=== PATIENT | male | born 1975 | race American Indian/Alaskan Native ===

== ENCOUNTER 2017-09-09 11:02 | Day surgery (SDC) | payer OTHER ==
[~2017-09-09 11:02] MED LIST: TETRACAINE 0.5% OD PRN
[2017-09-09] MEDS: MYDRIACYL OD SCH ×4 (11:50→12:45)
[2017-09-09] MEDS: VIGAMOX OD SCH ×3 (11:50→12:00)
[2017-09-09] MEDS: AK-Dilate OD SCH ×4 (11:50→12:45)
[2017-09-09] MEDS ORDERED: HumuLIN R IV ONE (12:29)
[2017-09-09] MEDS ORDERED: VERSED ONE (13:53)
[2017-09-09] MEDS ORDERED: SUBLIMAZE ONE (13:55)
[2017-09-09] MEDS ORDERED: MIOSTAT OD ONE (14:17)
--- NOTE | 2017-09-09 14:24 | Operative Report ---
Operative Report Operative Report: PATIENT'S NAME: DATE OF : DATE OF SURGERY: 09/09/2017 PREOPERATIVE DIAGNOSIS: Cataract right eye POSTOPERATIVE DIAGNOSIS: Same OPERATIVE PROCEDURE: Phacoemulsification with intraocular lens implantation, right eye SURGEON: Ale Quinn M.D. ECHOCARDIOGRAPH TECHNICIAN SURGEON: Rock Lens: [id number] 20.5 D ANESTHESIA: Monitored anesthesia care in combination with topical and intracameral anesthesia because of the established specific risk of reflux, arrhythmias, or anxiety attacks associated with ocular manipulation, as well as the difficulty of the spread cutter to manage such potentially catastrophic events while simultaneously attempting to complete the surgical procedure and was deemed necessary for the patient's safety to have an Soccer Ball Assembler present during the procedure whenever possible. An Soccer Ball Assembler was utilized to regulate the intravenous sedation of the patient so the patient was cooperative yet not asleep in order for the patient to successfully maintain fixation of the eye on the operating light of the microscope. COMPLICATIONS: No surgical complications No blood loss. ALLERGIES: N known drug allergies PROGNOSIS: Excellent INDICATIONS FOR SURGERY: The patient is undergoing surgery in the hopes of eliminating or improving these visual difficulties. PROCEDURE: After arriving at the surgery center, the patient was given topical anesthetic and dilating drops, as noted in the record. The patient was then taken into the operating room and given more anesthetic drops. The eyelids , lashes, and lid margins were scrubbed with Betadine solution, and the patient was draped. The Nurse Soccer Ball Assembler administered IV sedation and monitored the patient during the procedure. The eye was then fixated with a 0.12, and a stab incision was made in the peripheral clear cornea into the anterior chamber. This was made on my left side. Viscoelastic was next used to fill the anterior chamber. The eye was once again fixated with the 0.12 forceps and a keratome was used make an incision in clear cornea peripherally on my right hand side temporally. The capsule forceps were used to open the central anterior capsule and then make a continuous round capsulotomy. Hydrodissection was carried out utilizing a cannula and balanced salt solution to delineate the cortical material from the capsule and the nucleus from the cortical material. The phaco tip was introduced into the eye and used to remove the anterior cortical material in the area of the capsulotomy. Then the phaco tip was buried into the nucleus, and a chopping instrument was introduced into the eye and used to provide countertraction in the nucleus between this instrument and the phaco tip fracturing the nucleus. This procedure was repeated multiple times, providing multiple small segments of the lens, and then the phaco tip was used to remove each of these segments. An I/A tip was then used to remove the remaining cortex. The anterior chamber was refilled with viscoelastic. An one-piece, acrylic intraocular lens was then placed into an inserting cartridge. The tip of the inserting cartridge was introduced into the keratome incision and into the anterior chamber. The implant was gently advanced through the cartridge and into the eye, where it unfolded, and both haptics were placed in the capsular bag, where it centered nicely and appeared to be well fixated. After placement of the intraocular lens, the I~and~A handpiece was placed back into the eye and used to remove the viscoelastic, including viscoelastic that was behind the optic of the intraocular lens. The anterior chamber was then filled with balanced salt solution, and hydration of the wound was used to cause swelling of the wound and more appropriate watertight closure. When the wound was found to be firm, the patient was asked to comment on how bright the light was. If there was no light perception at all or if the light was substantially dimmer than during the rest of the surgery, the amount of fluid in the eye was decompressed to lower the intraocular pressure until the patient could see the bright light again. This was done to avoid any damage or decreased blood flow to the optic nerve. MEDICATIONS APPLIED AT END OF SURGERY: One drop of Pred Forte and Vigamox The patient was given a shield to wear at night and was instructed not to rub or push on the eye. DISCHARGE SUMMARY: The patient was released in stable condition. The patient and those with the patient were given a written sheet of postoperative instructions and counseling on any abnormal laboratory studies. The patient is to see us tomorrow for follow-up in the office and is to call immediately for any difficulties. Ale Quinn M.D. Date
--- NOTE | 2017-09-09 14:25 | Short Stay Summary ---
Short Stay Documentation Date of service: 09/09/17 - History H&P: obtained from office - Allergies and Medications Current Medications: Allergies No Known Allergies Allergy (Verified 09/08/17 13:04) Home Medications Medication Instructions Recorded Confirmed Last Taken Type Insulin Glargine,Hum.rec.anlog 25 units SQ TID 09/08/17 09/09/17 09/08/17 History [Lantus] Active Medications Acetazolamide (Diamox) 500 mg PO ONCE ONE Stop: 09/09/17 14:24 Moxifloxacin HCl (Vigamox) 1 drops OD Q5MIN [facility] Stop: 09/09/17 18:00 Last Admin: 09/09/17 12:00 Dose: 1 drops Phenylephrine HCl (Ak-Dilate) 1 drops OD Q5MIN [facility] Stop: 09/09/17 18:00 Last Admin: 09/09/17 12:45 Dose: 1 drops Prednisolone Acetate (Pred Forte 1%) 1 drops OD QID [place] Tetracaine HCl (Tetracaine 0.5%) 1 drops OD Q5M PRN PRN Reason: Analgesia Stop: 09/09/17 18:00 Last Admin: 09/09/17 11:50 Dose: 1 drops Tropicamide (Mydriacyl) 1 drops OD Q5MIN [place] Stop: 09/09/17 18:00 Last Admin: 09/09/17 12:45 Dose: 1 drops - Brief post op/procedure progress note Date of procedure: 09/09/17 Pre-op diagnosis: traumatic cataract right eye Post-op diagnosis: same Procedure: Phacoemulsification with intraocular lens insertion right eye Anesthesia: MAC, local Surgeon: GENE OSWALD Estimated blood loss: none Pathology: none Condition: stable - Disposition Condition at discharge: Good Disposition: DC-01 TO HOME OR SELFCARE - Discharge Diagnoses (1) Traumatic cataract of right eye Status: Resolved Qualifiers: Traumatic cataract type: localized Qualified Code(s): H26.111 - Localized traumatic opacities, right eye Short Stay Discharge Plan Follow up with: LISA GRIFFIN MD [Primary Care Provider] - 7 Days
--- NOTE | 2017-09-09 14:32 | Anesthesia Consultation ---
Anesthesia Consult and Med Hx Date of service: 09/09/17 - Airway Anesthetic Teeth Evaluation: Good ROM Head & Neck: Adequate Mental/Hyoid Distance: Adequate Mallampati Class: Class I Intubation Access Assessment: Good - Pulmonary Exam CTA: Yes - Cardiac Exam Cardiac Exam: RRR - Pre-Operative Health Status ASA Pre-Surgery Classification: ASA3 - Pulmonary Hx Smoking: Yes (3 CIG/DAY FOR 10 YEARS) Hx Sleep Apnea: Yes (NO MACHINE) - Central Nervous System Hx Psychiatric Problems: No - Other Systems Hx Alcohol Use: Yes (WEEKENDS) Hx Substance Use: No Hx Cancer: No
--- NOTE | 2017-09-09 14:32 | Anesthesia Day of Surgery ---
Anesthesia Day of Surgery - Day of Surgery Patient Examined: Yes Patient H&P Reviewed: Yes Patient is NPO: Yes
[2017-09-09 14:50] VITALS: BP 130/83
[2017-09-09] MEDS ORDERED: DIAMOX PO ONE (15:23)
[2017-09-09] MEDS ORDERED: PRED FORTE 1% ONE (16:13)
--- NOTE | 2017-09-09 17:26 | Post Anesthesia Evaluation ---
- Post Anesthesia Evaluation Patient Participated: Yes Airway Patent: Yes Stable Respiratory Function: Yes Nausea/Vomiting: No Temp > 96.8F: Yes Pain Manageable: Yes Adequeate Hydration: Yes Anesthesia Complications: No Block Receding Appropriately: Not Applicable Patient on Ventilator: No
[2017-09-09] MEDS ORDERED: PRED FORTE 1% OD SCH (18:00)
== END 2017-09-09 15:18 | disposition home or self-care (01) ==
LOC: OR 11:02
DX: E11.36 Type 2 diabetes mellitus with diabetic cataract (principal); G47.33 Obstructive sleep apnea (adult) (pediatric); E66.9 Obesity, unspecified; F17.210 Nicotine dependence, cigarettes, uncomplicated; Z68.32 Body mass index [BMI] 32.0-32.9, adult
CPT/HCPCS: 66984; 82962; J2250; J3010; J1815; V2632

== ENCOUNTER 2018-09-18 12:46 | Inpatient (IN) | payer OTHER ==
[2018-09-18] MEDS ORDERED: NACL 0.9% 1000 ML 2,000 ML IV ONE (12:56)
[2018-09-18] MEDS ORDERED: ROCEPHIN/NS 1 GM/50 ML 1 GM/50 ML BAG IV ONE (13:06)
--- NOTE | 2018-09-18 13:15 | Emergency Department Report ---
HPI - General Chief Complaint: Fever Time Seen by Provider: 09/18/18 12:53 - HPI HPI: 42-year-old -[place] male presents to the emergency department with complaint of generalized weakness and general illness for the past 1-2 days. He presents with a fever and the patient admits to having some chills and sweats but never checked his temperature. The patient is insulin-dependent diabetic on Novolin R and Novolin and that he has been out of his insulin for the past week or so. No recent travel or sick contacts at home. He does have some consistent diarrhea but he denies any chest pain, shortness of breath, fever, nausea, vomiting, rash. His primary care physician is Dr. Taty Chavis. He did not take anything for his symptoms prior to arrival today. ED Past Medical Hx - Past Medical History Previous Medical History?: Yes Hx Diabetes: Yes (4 YEARS) Hx HIV: No - Surgical History Past Surgical History?: No - Social History Smoking Status: Current Every Day Smoker - Medications Home Medications: Home Medications Medication Instructions Recorded Confirmed Last Taken Type Insulin NPH, Human [NovoLIN N] 20 units SQ HS 09/18/18 09/18/18 Unknown History Insulin Regular, Human [HumuLIN R] 20 unit SQ AC 09/18/18 09/18/18 Unknown History ED Review of Systems ROS: Stated complaint: WEAK/DIABETIC Other details as noted in HPI Constitutional: chills, diaphoresis, weakness Eyes: denies: eye pain, vision change ENT: denies: ear pain, throat pain Respiratory: denies: cough, shortness of breath Cardiovascular: denies: chest pain, palpitations Gastrointestinal: denies: abdominal pain, vomiting Genitourinary: denies: dysuria, discharge Musculoskeletal: denies: back pain, arthralgia Skin: denies: rash, lesions Neurological: denies: headache, weakness Physical Exam - Physical Exam Physical Exam: GENERAL: The patient is well-developed well-nourished. HENT: Normocephalic. Atraumatic. Patient has moist mucous membranes. EYES: Extraocular motions are intact. Pupils equal reactive to light bilaterally. NECK: Supple. Trachea is midline. CHEST/LUNGS: Clear to auscultation. There is no respiratory distress noted. HEART/CARDIOVASCULAR: Regular. There is moderate tachycardia. There is no murmur. ABDOMEN: Abdomen is soft, nontender. Patient has normal bowel sounds. There is no abdominal distention. SKIN: Skin is warm and dry. NEURO: The patient is awake, alert, and oriented. The patient is cooperative. The patient has no focal neurologic deficits. The patient has normal speech. CN II - XII grossly intact. MUSCULOSKELETAL: There is no tenderness or deformity. There is no limitation range of motion. There is no evidence of acute injury. ED Medical Decision Making - Lab Data Result diagrams: 09/18/18 13:04 09/18/18 13:04 - EKG Data -: EKG Interpreted by Me EKG shows normal: sinus rhythm, axis, intervals, QRS complexes, ST-T waves Rate: tachycardia (125 bpm) - EKG Data When compared to previous EKG there are: previous EKG unavailable Interpretation: other (Sinus Tachycardia) - Radiology Data Radiology results: image reviewed interpreted by me: Chest x-ray does not show any acute process. There are no pleural effusions, obvious pneumonia and there is no pneumothorax. - Medical Decision Making Patient presents to the emergency department with some generalized weakness, hyperglycemia, and fever. Sepsis protocol was initiated and the patient was treated empirically with some Rocephin. He had a blood sugar of about 450 but does not appear in diabetic ketoacidosis as there is no significant anion gap elevation and no venous acidosis. He was given IV fluid resuscitation and IV insulin and his blood sugars come down to about 250. Chest x-ray did not show any pneumonia, pleural effusions, pneumothorax, focal consolidation, or any other acute process. Patient was given Tylenol and Toradol and his fever came down slightly but the patient still remains febrile, diaphoretic and tachycardic. For these reasons, the patient will be admitted to the hospital for further evaluation and treatment and was acceptable for admission by the hospitalist, Dr. Steele. - Differential Diagnosis sepsis, SIRS, DKA, viral syndrome Critical Care Time: No Critical care attestation.: If time is entered above; I have spent that time in minutes in the direct care of this critically ill patient, excluding procedure time. ED Disposition Clinical Impression: SIRS (systemic inflammatory response syndrome), Hyperglycemia due to type 1 diabetes mellitus, Fever Disposition: OP ADMIT IP TO THIS HOSP Is pt being admited?: Yes Condition: Serious Time of Disposition: 18:09
[2018-09-18] MEDS ORDERED: TYLENOL ONE (13:18)
[2018-09-18 13:29] LABS: Basophils # (Auto) 0.1 K/mm3 (0.0-0.1); Basophils % (Auto) 0.5 % (0.0-1.8); Eosinophils % (Auto) 0.1 % (0.0-4.3); Hematocrit 41.7 % (35.5-45.6); Hemoglobin 13.9 gm/dl (11.8-15.2); Lymphocytes # (Auto) 1.1 K/mm3 (1.2-5.4); Lymphocytes % (Auto) 7.3 % (13.4-35.0); Mean Corpuscular HGB Conc 33 % (32-34); Mean Corpuscular Volume 86 fl (84-94); Monocytes % (Auto) 12.5 % (0.0-7.3); Platelet Count 172 K/mm3 (140-440); Red Blood Count 4.84 M/mm3 (3.65-5.03); Red Cell Distribution Width 14.3 % (13.2-15.2)
[2018-09-18 13:31] LABS: Bilirubin,Urine NEG (Negative); Blood,Urine SM (Negative); Color,Urine Yellow (Yellow); Urobilinogen,Urine < 2.0 mg/dL (<2.0)
[2018-09-18] MEDS ORDERED: TYLENOL PO ONE (13:40)
[2018-09-18 13:49] LABS: Alanine Aminotransferase 14 units/L (7-56); Albumin 3.3 g/dL (3.9-5); BUN/Creatinine Ratio 12; Blood Urea Nitrogen 18 mg/dL (9-20); Calcium 9.3 mg/dL (8.4-10.2); Hemolysis Index 3
[2018-09-18] MEDS ORDERED: TORADOL IV ONE (13:51)
[2018-09-18] MEDS ORDERED: HumuLIN R IV ONE (13:51)
--- NOTE | 2018-09-18 14:00 | XRay Report ---
PROCEDURE: XR CHEST 1V AP TECHNIQUE: AP chest HISTORY: fever, sepsis COMPARISONS: None FINDINGS: Trachea midline. Heart size normal. Mediastinal contour unremarkable. No pneumothorax. No effusion. No acute airspace disease. No acute bony abnormality IMPRESSION: No acute pulmonary disease.. This document is electronically signed by Sourav Quintero MD., Sep 18 2018 01:58:08 PM ET
--- NOTE | 2018-09-18 15:37 | History and Physical Report ---
History of Present Illness Chief complaint: I just feel sick History of present illness: 42 YO Male with DM, Nicotine Dependence, Obesity presents to ED for evaluation. Pt states that he has experienced fever, night sweats, generalized weakness and fatigue over the past 1 week, with worsening symptoms over the past 1-2 days. Pt acknowledges 15lbs unintentional weight loss over the past 1 month, as well as night sweats. Pt transported to [facility] via private vehicle. Pt seen and evaluated in ED and found to have temperature to 103.1, Acidosis, SIRS, Hyponatremia. QSofa Score:0 at time of admission. Pt denies CP, Palpitations, NVD, Trauma, back Pain, Headache, skin rash, unilateral leg swelling, calf pain, prolonged travel/immobility, known ill contacts, contacts with similar symptoms, recent foreign travel, Known exposure to Tuberculosis. Pt admitted to Medical floor, and initiated on IV antibiotic therapy. CTA chest, as well as CT Abdomen/Pelvis are pending at time of admission. No prior admission for review. All listed medication reconciled at time of admission. PCP: Dr. Taty Chavis. Past History Past Medical History: diabetes, other (Obesity) Past Surgical History: No surgical history Social history: smoking Family history: hypertension Medications and Allergies Allergies Allergy/AdvReac Type Severity Reaction Status Date / Time No Known Allergies Allergy Verified 09/08/17 13:04 Home Medications Medication Instructions Recorded Confirmed Last Taken Type Insulin NPH, Human [NovoLIN N] 20 units SQ HS 09/18/18 09/18/18 Unknown History Insulin Regular, Human [HumuLIN R] 20 unit SQ AC 09/18/18 09/18/18 Unknown History Review of Systems Constitutional: fever, night sweats, weakness Ears, nose, mouth and throat: no ear pain, no ear discharge, no tinnitis, no decreased hearing, no nose pain Cardiovascular: no chest pain, no orthopnea, no palpitations, no rapid/irregular heart beat, no edema, no syncope Respiratory: no cough, no cough with sputum, no excessive sputum, no hemoptysis, no shortness of breath Gastrointestinal: no abdominal pain, no nausea, no vomiting, no diarrhea, no constipation Genitourinary Male: no hematuria, no flank pain, no discharge, no urinary frequency, no urinary hesitancy Rectal: no pain, no incontinence, no bleeding Musculoskeletal: no neck stiffness, no neck pain, no shooting arm pain, no leg numbness/tingling Integumentary: no rash, no pruritis, no redness, no sores, no wounds, no jaundice Neurological: no transient paralysis, no paralysis, no weakness, no parathesias, no numbness, no tingling, no seizures, no syncope Psychiatric: no anxiety, no memory loss, no change in sleep habits, no sleep disturbances, no insomnia, no hypersomnia, no change in appetite, no change in libido Endocrine: no cold intolerance, no heat intolerance, no polyphagia, no excessive thirst, no polydipsia, no polyuria, no nocturia Hematologic/Lymphatic: no easy bruising, no easy bleeding, no lymphadenopathy Allergic/Immunologic: no urticaria, no allergic rhinitis, no wheezing, no persistent infections Exam - Constitutional Vitals: Temp Pulse Resp BP Pulse Ox 102.5 F H 120 H 20 101/49 97 09/18/18 14:42 09/18/18 14:42 09/18/18 14:42 09/18/18 14:42 09/18/18 14:42 General appearance: Present: mild distress, obese - EENT Eyes: Present: PERRL ENT: hearing intact, clear oral mucosa - Neck Neck: Present: supple, normal ROM - Respiratory Respiratory effort: normal Respiratory: bilateral: CTA - Cardiovascular Heart Sounds: Present: S1 & S2. Absent: rub, click - Extremities Extremities: pulses symmetrical, No edema Peripheral Pulses: within normal limits - Abdominal General gastrointestinal: Present: soft, non-tender, non-distended, normal bowel sounds Male genitourinary: Present: normal - Integumentary Integumentary: Present: clear, warm, dry - Musculoskeletal Musculoskeletal: gait normal, strength equal bilaterally - Psychiatric Psychiatric: appropriate mood/affect, intact judgment & insight - Neurologic Neurologic: CNII-XII intact, moves all extremities Results - Labs CBC & Chem 7: 09/18/18 13:04 09/18/18 13:04 Labs: Abnormal lab results 09/18/18 09/18/18 09/18/18 Range/Units 12:57 13:04 13:04 WBC 15.8 H (4.5-11.0) K/mm3 Lymph % (Auto) 7.3 L (13.4-35.0) % [place] % (Auto) 12.5 H (0.0-7.3) % Lymph # 1.1 L (1.2-5.4) K/mm3 [place] # 2.0 H (0.0-0.8) K/mm3 Seg Neutrophils % 79.6 H (40.0-70.0) % Seg Neutrophils # 12.5 H (1.8-7.7) K/mm3 Sodium 128 L (137-145) mmol/L Chloride 89.0 L (98-107) mmol/L Glucose 461 H (75-100) mg/dL POC Glucose 418 H (70-105) Lactic Acid (0.7-2.0) mmol/L Albumin 3.3 L (3.9-5) g/dL Ur Specific [place] (1.003-1.030) 09/18/18 09/18/18 09/18/18 Range/Units 13:04 13:08 14:43 WBC (4.5-11.0) K/mm3 Lymph % (Auto) (13.4-35.0) % [place] % (Auto) (0.0-7.3) % Lymph # (1.2-5.4) K/mm3 [place] # (0.0-0.8) K/mm3 Seg Neutrophils % (40.0-70.0) % Seg Neutrophils # (1.8-7.7) K/mm3 Sodium (137-145) mmol/L Chloride (98-107) mmol/L Glucose (75-100) mg/dL POC Glucose (70-105) Lactic Acid 2.80 H* 2.20 H* (0.7-2.0) mmol/L Albumin (3.9-5) g/dL Ur Specific [place] 1.031 H (1.003-1.030) 09/18/18 Range/Units 15:18 WBC (4.5-11.0) K/mm3 Lymph % (Auto) (13.4-35.0) % [place] % (Auto) (0.0-7.3) % Lymph # (1.2-5.4) K/mm3 [place] # (0.0-0.8) K/mm3 Seg Neutrophils % (40.0-70.0) % Seg Neutrophils # (1.8-7.7) K/mm3 Sodium (137-145) mmol/L Chloride (98-107) mmol/L Glucose (75-100) mg/dL POC Glucose 255 H (70-105) Lactic Acid (0.7-2.0) mmol/L Albumin (3.9-5) g/dL Ur Specific [place] (1.003-1.030) Assessment and Plan - Patient Problems (1) SIRS (systemic inflammatory response syndrome) Current Visit: Yes Status: Acute Plan to address problem: IV antibiotic therapy, CBC, CMP, Urinalysis, Chest x ray, blood cultures, stool studies, CTA chest, CT Abdomen pelvis to evaluate for intrathoracic and intraabdominal pathology, Influenza A&B, Rapid HIV (2) Hyperglycemia due to type 1 diabetes mellitus Current Visit: Yes Status: Acute Plan to address problem: ADA diet,sliding scale insulin, accu check, lantus QHS. (3) Acidosis Current Visit: Yes Status: Acute Plan to address problem: IVF resuscitation therapy, repeat bmp, (4) Hyponatremia syndrome Current Visit: Yes Status: Acute Plan to address problem: IVF resuscitation therapy, repeat bmp in am. (5) Nicotine dependence with withdrawal Current Visit: Yes Status: Acute Qualifiers: Nicotine product type: cigarettes Qualified Code(s): F17.213 - Nicotine dependence, cigarettes, with withdrawal Plan to address problem: Smoking cessation counseling, supportive care. (6) DVT prophylaxis Current Visit: Yes Status: Acute Plan to address problem: SCD to BLE while in bed, Prophylactic lovenox
[2018-09-18] MEDS ORDERED: NACL 0.9% 1000 ML IV ONE (16:19)
[2018-09-18] MEDS ORDERED: SODIUM CHLORIDE FLUSH SYRINGE 10 ML IV PRN (16:19)
[2018-09-18] MEDS ORDERED: ZOFRAN IV PRN (16:19)
[2018-09-18] MEDS ORDERED: NACL 0.9% 500 ML 500 ML ONE ×2 (17:10→20:59)
[2018-09-18] MEDS ORDERED: D50W (25GM) Syringe IV PRN (19:01)
--- NOTE | 2018-09-18 22:09 | Cat Scan Report ---
PROCEDURE: CT ANGIO CHEST TECHNIQUE: Computerized tomographic angiography of the chest was performed during the IV injection o f iodinated nonionic contrast including image processing. The image data was postprocessed using 2-d imensional multiplanar reformatted (MPR) and 3-dimensional (MIP and/or volume rendered) techniques. A utomated exposure control, adjustment of mA and/or kV according to patient size, or iterative reconst ruction dose optimization techniques were utilized. HISTORY: dypsnea COMPARISONS: None . FINDINGS: Pulmonary out flow tract, right and left main pulmonary arteries and the approximal branches: Clear, no filling defects seen to suggest pulmonary embolus. Pericardium: No evidence of pericardial effusion. Thoracic aorta: No evidence of aneurysmal dilatation or dissection. Coronary arteries: Unremarkable. Mediastinum and hilar regions: Non specific subcentimeter lymph nodes are visualized. No pathologica lly enlarged lymph nodes or masses are identified. Lung Amos: Clear. Upper abdomen: No acute or focal abnormality is seen. Other: There is deformity of the midportion of the sternum. There appears to be an old fracture with nonunion versus congenital anomaly with nonfusion of the previous growth plate. This is best visualiz ed on sagittal images. No acute bone abnormalities are identified. IMPRESSION: No acute abnormalities are identified. No evidence of pulmonary embolus. Mild deformity junction of the proximal third of the sternum as described above. This could be relate d to previous fracture with nonunion or congenital anomaly with nonfusion of previous growth plate in this location. This is best visualized on sagittal images. Correlation with physical exam recommende d.. This document is electronically signed by James Bryant MD., Sep 18 2018 10:07:06 PM ET
[2018-09-18] MEDS: HumaLOG SUB-Q SCH (22:17)
[2018-09-18] MEDS: LOVENOX SUB-Q SCH (22:18)
[2018-09-18] MEDS: ROCEPHIN/NS 2 GM/100 ML 2 GM/100 ML BAG IV SCH (22:19)
[2018-09-18] MEDS: SODIUM CHLORIDE FLUSH SYRINGE 10 ML IV SCH (22:19)
--- NOTE | 2018-09-18 23:17 | Cat Scan Report ---
PROCEDURE: CT ABDOMEN PELVIS W CON TECHNIQUE: Computerized axial tomography of the abdomen and pelvis was performed after the IV inject ion of iodinated nonionic contrast. HISTORY: fever, pain COMPARISONS: None . FINDINGS: Lower Lung vazquez: No focal abnormalities seen. Upper Abdomen: The gallbladder is contracted otherwise unremarkable. The liver, the adrenal glands, pancreas and the spleen show no abnormalities. Kidneys, Ureters and Urinary bladder: No abnormalities are seen. No renal masses, or hydronephrosis visualized. Retroperitoneum: Minimal atherosclerotic changes are seen in the abdominal aorta. No aneurysm is vis ualized. Nonspecific subcentimeter lymph nodes are seen in the retroperitoneum. No pathologically enlarged ly mph nodes are identified. Bowel: No focal or acute abnormalities are identified. No evidence of bowel obstruction ascites or f ree intraperitoneal gas. Normal-appearing appendix is seen in the right lower quadrant. Reproductive organs: Prostate gland does not appear to be enlarged. Other: No acute bone abnormalities are identified. IMPRESSION: No acute or focal abnormalities are identified. This document is electronically signed by James Bryant MD., Sep 18 2018 11:15:10 PM ET
[2018-09-19 05:44] LABS: Amphetamine Screen,Urine PRESUMPTIVE NEGATIVE; Benzodiazepines Screen,Urine PRESUMPTIVE NEGATIVE; Cannabinoid Screen,Urine PRESUMPTIVE NEGATIVE; Cocaine Screen,Urine PRESUMPTIVE NEGATIVE; Methadone Screen,Urine PRESUMPTIVE NEGATIVE; Opiate Screen,Urine PRESUMPTIVE NEGATIVE
[2018-09-19] MEDS: HumaLOG SUB-Q SCH ×4 (09:35→22:04)
[2018-09-19] MEDS: ROCEPHIN/NS 2 GM/100 ML 2 GM/100 ML BAG IV SCH (10:31)
[2018-09-19] MEDS: SODIUM CHLORIDE FLUSH SYRINGE 10 ML IV SCH ×2 (10:31→22:03)
[2018-09-19] MEDS: TYLENOL PO PRN ×2 (12:28→17:10)
[2018-09-19 12:33] LABS: Hematocrit 38.1 % (35.5-45.6); Hemoglobin 12.7 gm/dl (11.8-15.2); Mean Corpuscular HGB Conc 33 % (32-34); Mean Corpuscular Volume 85 fl (84-94); Platelet Count 163 K/mm3 (140-440); Red Blood Count 4.48 M/mm3 (3.65-5.03); Red Cell Distribution Width 14.2 % (13.2-15.2)
--- NOTE | 2018-09-19 12:47 | Progress Note ---
Assessment and Plan / Sepsis, POA due to right diabetic foot infection patient presented with fever, lactic acidosis, leukocytosis, tachycardia and tachypnea cont IV antibiotic therapy, follow blood cultures, wound cx, ID consult, CT Right LE /Right diabetic foot infection cont IV antibiotic therapy, follow blood cultures, wound cx, ID consult, CT Right LE / Hyperglycemia due to uncontrolled type 2 diabetes mellitus ADA diet, sliding scale insulin, accu check, lantus QHS. adjust insulin dose as needed /Metabolic Acidosis due to sepsis and hyperglycemia IVF resuscitation therapy, repeat bmp, / Hyponatremia due to hyperglycemia IVF resuscitation therapy, repeat bmp in am. / Tobacco abuse Smoking cessation counseling done on admission, nicotine patch if needed / DVT prophylaxis Prophylactic lovenox Brief History: 42 y/o male with history of uncontrolled diabetes, HTN admitted on 09/18/2018 due to 2-day history of subjective fever, malaise and right foot pain and noted some tenderness and swelling of the right plantal 1st mt head area with some purulence drainage. In the ED, temp 103, HR 132, BP 139/85, R 21, O2 sat 95%. WBC 15. Creat 1.5. Lactate 2.8. Glucose 418. UA neg. HIV neg. Blood culture 09/18/2018 no growth. CXR negative. CTA chest negative. CT abdomen negative. ID consulted for further Mx of the infected diabetic foot. Physical Examination General appearance: Alert in NAD, HEENT: Atraumatic; oropharynx clear with moist mucous membranes and no mucosal ulcerations/no oral thrush; normal hard and soft palate. Normal external ears. PERRLA Neck: Trachea midline; supple, no thyromegaly or lymphadenopathy Lungs: CTA, with normal respiratory effort and no intercostal retractions CV: S1 and s2 positive, no murmurs Abdomen: Soft, non-tender; no masses or hepatosplenomegaly Extremities: +right foot 1st mt head plantar wound with edema, tenderness draining bloody purulence Skin: Normal temperature, turgor and texture; no rash, ulcers or subcutaneous nodules Psych: Appropriate affect, alert and oriented to person, place and time. Neuro: alert and oriented x 3. Moving all extremities Subjective Date of service: 09/19/18 Interval history: patient seen and examined c/o right foot pain and discharge from the planter surface spiking temp Objective - Constitutional Vitals: Vital Signs - 12hr 09/19/18 09/19/18 04:54 12:04 Temperature 100.9 F H 102.4 F H Pulse Rate 111 H 103 H Respiratory 20 20 Rate Blood Pressure 127/79 O2 Sat by Pulse 95 96 Oximetry - Labs CBC & Chem 7: 09/19/18 12:06 09/19/18 12:06 Labs: Abnormal lab results 09/18/18 09/18/18 09/18/18 Range/Units 12:57 13:04 13:04 WBC 15.8 H (4.5-11.0) K/mm3 Lymph % (Auto) 7.3 L (13.4-35.0) % [place] % (Auto) 12.5 H (0.0-7.3) % Lymph # 1.1 L (1.2-5.4) K/mm3 [place] # 2.0 H (0.0-0.8) K/mm3 Seg Neutrophils % 79.6 H (40.0-70.0) % Seg Neutrophils # 12.5 H (1.8-7.7) K/mm3 D-Dimer (0-234) ng/mlDDU Sodium 128 L (137-145) mmol/L Chloride 89.0 L (98-107) mmol/L Glucose 461 H (75-100) mg/dL POC Glucose 418 H (70-105) Lactic Acid (0.7-2.0) mmol/L Albumin 3.3 L (3.9-5) g/dL Ur Specific [place] (1.003-1.030) 09/18/18 09/18/18 09/18/18 Range/Units 13:04 13:08 14:43 WBC (4.5-11.0) K/mm3 Lymph % (Auto) (13.4-35.0) % [place] % (Auto) (0.0-7.3) % Lymph # (1.2-5.4) K/mm3 [place] # (0.0-0.8) K/mm3 Seg Neutrophils % (40.0-70.0) % Seg Neutrophils # (1.8-7.7) K/mm3 D-Dimer (0-234) ng/mlDDU Sodium (137-145) mmol/L Chloride (98-107) mmol/L Glucose (75-100) mg/dL POC Glucose (70-105) Lactic Acid 2.80 H* 2.20 H* (0.7-2.0) mmol/L Albumin (3.9-5) g/dL Ur Specific [place] 1.031 H (1.003-1.030) 09/18/18 09/18/18 09/18/18 Range/Units 15:18 15:42 21:49 WBC (4.5-11.0) K/mm3 Lymph % (Auto) (13.4-35.0) % [place] % (Auto) (0.0-7.3) % Lymph # (1.2-5.4) K/mm3 [place] # (0.0-0.8) K/mm3 Seg Neutrophils % (40.0-70.0) % Seg Neutrophils # (1.8-7.7) K/mm3 D-Dimer 283.12 H (0-234) ng/mlDDU Sodium (137-145) mmol/L Chloride (98-107) mmol/L Glucose (75-100) mg/dL POC Glucose 255 H 389 H (70-105) Lactic Acid (0.7-2.0) mmol/L Albumin (3.9-5) g/dL Ur Specific [place] (1.003-1.030) 09/19/18 09/19/18 Range/Units 07:50 12:06 WBC 13.2 H (4.5-11.0) K/mm3 Lymph % (Auto) (13.4-35.0) % [place] % (Auto) (0.0-7.3) % Lymph # (1.2-5.4) K/mm3 [place] # (0.0-0.8) K/mm3 Seg Neutrophils % (40.0-70.0) % Seg Neutrophils # (1.8-7.7) K/mm3 D-Dimer (0-234) ng/mlDDU Sodium (137-145) mmol/L Chloride (98-107) mmol/L Glucose (75-100) mg/dL POC Glucose 250 H (70-105) Lactic Acid (0.7-2.0) mmol/L Albumin (3.9-5) g/dL Ur Specific [place] (1.003-1.030)
[2018-09-19 12:56] LABS: BUN/Creatinine Ratio 12; Blood Urea Nitrogen 14 mg/dL (9-20); Calcium 8.2 mg/dL (8.4-10.2); Hemolysis Index 25
[2018-09-19] MEDS ORDERED: VANCOMYCIN/NS 1 GM/250 ML 1 GM/250 ML BAG IV SCH (13:00)
[2018-09-19] MEDS ORDERED: VANCOMYCIN 2,000 MG in NACL 0.9% 500 ML 500 ML IV ONE (14:30)
--- NOTE | 2018-09-19 15:52 | Consultation ---
History of Present Illness - Reason for Consult Consult date: 09/19/18 diabetic foot infection Requesting physician: MODESTO EUBANKS - History of Present Illness 42 y/o male with history of uncontrolled diabetes, HTN admitted on 09/18/2018 due to 2-day history of subjective fever, malaise and right foot pain. He reports he has been shaving a callus while showering for several months, but this last time he noted some tenderness and swelling of the right plantal 1st mt head area. Also noted some purulence drainage. Reports 15lbs unintentional weight loss over a month. Denies cough, SOB, N/V/D, urinary symptoms or abdominal pain. In the ED, temp 103, HR 132, BP 139/85, R 21, O2 sat 95%. WBC 15. Creat 1.5. Lactate 2.8. Glucose 418. UA neg. HIV neg. Blood culture 09/18/2018 no growth. CXR negative. CTA chest negative. CT abdomen negative. Review of Systems: General: +fever, chills, malaise, decreased appetite Cutaneous: no rash, pruritus Head: no headaches or injury Eyes: no changes in vision, eye pain, double vision Ears: no ear pain, ear discharge, ringing or hearing loss Nose: no nose bleeding, stuffiness Mouth & throat: no bleeding gums, no horseness, no dental problems, or swollen glands Neck: no pain, node enlargement/lumps, tyroid enlargement or tenderness Respiratory: no cough, wheezing, sputum, hemoptysis, pleuritic chest pain Cardiovascular: no chest pain, leg edema, cyanosis, CLARK, orthopnea Musculoskeletal:+right foot swelling and wound draining Gastrointestinal: no nausea, vomiting, hematemesis, diarrhea, constipation, melena, bright red blood in stools, fecal incontinence, jaundice Genitourinary/Reproductive: no frequent urination, dysuria, hematuria, incontinence Neurogical: no seizures, no headaches, no weakness, no paresthesias, no loss of speech or vision; no memory loss, no vertigo, no tremors, no numbness Psychiatric: stable mood; no excessive anxiety, sadness or moodiness Past History Past Medical History: diabetes, other (Obesity) Past Surgical History: No surgical history Social history: smoking Family history: hypertension Medications and Allergies Allergies Allergy/AdvReac Type Severity Reaction Status Date / Time No Known Allergies Allergy Verified 09/08/17 13:04 Home Medications Medication Instructions Recorded Confirmed Last Taken Type Insulin NPH, Human [NovoLIN N] 20 units SQ HS 09/18/18 09/18/18 Unknown History Insulin Regular, Human [HumuLIN R] 20 unit SQ AC 09/18/18 09/18/18 Unknown History Active Meds: Active Medications Acetaminophen (Tylenol) 650 mg PO Q4H PRN PRN Reason: Pain MILD(1-3)/Fever >100.5/URIAS Last Admin: 09/19/18 12:28 Dose: 650 mg Documented by: Dextrose (D50w (25gm) Syringe) 50 ml IV PRN PRN PRN Reason: Hypoglycemia Enoxaparin Sodium (Lovenox) 40 mg SUB-Q QDAY@2200 [place] Last Admin: 09/18/18 22:18 Dose: 40 mg Documented by: Ceftriaxone Sodium (Rocephin/Ns 2 Gm/100 Ml) 2 gm in 100 mls @ 200 mls/hr IV Q12HR [facility]; Protocol Last Admin: 09/19/18 10:31 Dose: 200 mls/hr Documented by: Vancomycin HCl 2,000 mg/ (Sodium Chloride) 540 mls @ 250 mls/hr IV ONCE ONE Stop: 09/19/18 16:39 Vancomycin HCl 1,750 mg/ (Sodium Chloride) 535 mls @ 333.333 mls/hr IV Q12H [place] Insulin Human Lispro (Humalog) 0 unit SUB-Q ACHS [facility]; Protocol Last Admin: 09/19/18 13:20 Dose: 3 unit Documented by: Insulin Human NPH (Humulin N) 20 unit SUB-Q BIDDIAB [place] Ondansetron HCl (Zofran) 4 mg IV Q8H PRN PRN Reason: Nausea And Vomiting Sodium Chloride (Sodium Chloride Flush Syringe 10 Ml) 10 ml IV BID [place] Last Admin: 09/19/18 10:31 Dose: 10 ml Documented by: Sodium Chloride (Sodium Chloride Flush Syringe 10 Ml) 10 ml IV PRN PRN PRN Reason: LINE FLUSH Physical Examination - Physical Exam Narrative exam: General appearance: Alert in NAD, conversant Eyes: anicteric sclerae, moist conjunctivae; no lid-lag; PERRLA HENT: Atraumatic; oropharynx clear with moist mucous membranes and no mucosal ulcerations/no oral thrush; normal hard and soft palate. Normal external ears. Neck: Trachea midline; supple, no thyromegaly or lymphadenopathy Lungs: CTA, with normal respiratory effort and no intercostal retractions CV: RRR, no murmurs Abdomen: Soft, non-tender; no masses or hepatosplenomegaly Extremities: +right foot 1st mt head plantar wound with edema, tenderness draining bloody purulence Skin: Normal temperature, turgor and texture; no rash, ulcers or subcutaneous nodules Psych: Appropriate affect, alert and oriented to person, place and time. Neuro: alert and oriented x 3. Moving all extermities - Constitutional Vitals: Vital Signs Temp Pulse Resp BP Pulse Ox 102.4 F H 109 H 20 127/79 95 09/19/18 12:04 09/19/18 12:05 09/19/18 12:04 09/19/18 04:54 09/19/18 12:05 Temperature -Last 24 Hours Temperature 102.4 F Temperature 100.9 F Temperature 99.8 F Temperature 99.3 F Results - Labs CBC & Chem 7: 09/19/18 12:06 09/19/18 12:06 Labs: Abnormal lab results 09/18/18 09/18/18 09/19/18 Range/Units 15:42 21:49 07:50 WBC (4.5-11.0) K/mm3 D-Dimer 283.12 H (0-234) ng/mlDDU Sodium (137-145) mmol/L Glucose (75-100) mg/dL POC Glucose 389 H 250 H (70-105) Calcium (8.4-10.2) mg/dL 09/19/18 09/19/18 09/19/18 Range/Units 12:06 12:06 13:19 WBC 13.2 H (4.5-11.0) K/mm3 D-Dimer (0-234) ng/mlDDU Sodium 134 L (137-145) mmol/L Glucose 232 H (75-100) mg/dL POC Glucose 246 H (70-105) Calcium 8.2 L (8.4-10.2) mg/dL Assessment and Plan Cultures: Blood culture 09/18/2018 no growth. Assessment: 42 y/o male with history of uncontrolled diabetes, HTN admitted on 09/18/2018 due to 2-day history of subjective fever, malaise and right foot pain 1) Sepsis: Present on admission, manifested by fever, tachycardia, leukocytosis, increased lactate. Etiology most likely right diabetic foot infection. Lactate 2.8. UA neg. HIV neg. Blood culture 09/18/2018 no growth. CXR negative. CTA chest negative. CT abdomen negative. 2) Right diabetic foot infection: ? abscess ? osteomyelitis. He reports he has been shaving a callus while showering for several months, but this last time he noted some tenderness and swelling of the right plantal 1st mt head area. Also noted some purulence drainage. 3) LANI 4) Uncontrolled diabetes: Glucose 418. Recommendations: - follow-up blood cultures - obtain right foot drainage culture-discussed with nursing staff - contact isolation until MRSA is r/o - stop ceftriaxone - start vancomycin, cefepime and flagyl renally adjusted - right foot MRI - surgical consult - right foot arterial studies Will follow. Meghana Valentino MD Infectious Diseases Weaving Instructor [facility] M [phone] O [phone]
--- NOTE | 2018-09-19 17:03 | Cat Scan Report ---
PROCEDURE: CT LOWER EXTREMITY RT W CON TECHNIQUE: enhanced CT of the right foot at 2.5 mm axial intervals. Coronal and sagittal reconstruct ion was also performed. CT DOSE LENGTH PRODUCT: 116.01 mGycm HISTORY: right foot planter surface wound COMPARISONS: None FINDINGS: Bony structures: No evidence for acute fracture or dislocation is seen. Bony mineralization is normal . Spurring off the posterior and plantar calcaneus is noted. No evidence for cortical erosion or foca l lucency is seen to suggest osteomyelitis Joint spaces: Joint spaces are maintained. Soft tissues: Numerous small air bubbles in the soft tissues surrounding the first proximal phalanx a re noted. There is focal soft tissue swelling along the plantar surface of the foot at this level as well, likely consistent with the wound mentioned in the history. No well-defined enhancing abscess is noted. Findings suggest cellulitis. No radiopaque foreign bodies are noted. IMPRESSION: Air bubbles and soft tissue swelling surrounding the first proximal phalanx suggesting cellulitis. No acute bony abnormality identified. No radiographic evidence for osteomyelitis. This document is electronically signed by Tahira Dodge MD., Sep 19 2018 05:01:30 PM ET
[2018-09-19] MEDS: FLAGYL 500 MG/100 ML 500 MG/100 ML BAG IV SCH ×2 (17:09→22:43)
[2018-09-19] MEDS: NACL 0.45% 1000 ML 1,000 ML IV SCH (18:10)
[2018-09-19] MEDS: MAXIPIME/NS 2 GM/100 ML 2 GM/100 ML BAG IV SCH ×2 (18:19→22:02)
--- NOTE | 2018-09-19 20:42 | Vascular Lab Report ---
PROCEDURE: VL ARTERIAL DUPLEX LE BILAT TECHNIQUE: Duplex Doppler ultrasound of either bilateral lower extremity arteries or arterial bypass grafts was performed with image documentation. HISTORY: right foot ulcer ] COMPARISONS: None . FINDINGS: RIGHT LOWER EXTREMITY: Arterial waveforms: Triphasic . Significant segmental velocity differential: None . Arterial bypass graft: Not present . LEFT LOWER EXTREMITY: Arterial waveforms: Triphasic . Significant segmental velocity differential: None . Arterial bypass graft: Not present . IMPRESSION: No evidence of significant arterial insufficiency in the lower extremities. This document is electronically signed by Kyaw Giordano MD., Sep 19 2018 08:39:51 PM ET
[2018-09-19] MEDS: LOVENOX SUB-Q SCH (22:03)
[2018-09-19] MEDS: PERCOCET 5/325 PO PRN (22:45)
[2018-09-20] MEDS: MAXIPIME/NS 2 GM/100 ML 2 GM/100 ML BAG IV SCH ×2 (05:30→18:08)
[2018-09-20] MEDS: FLAGYL 500 MG/100 ML 500 MG/100 ML BAG IV SCH ×3 (06:00→22:19)
[2018-09-20] MEDS: NACL 0.45% 1000 ML 1,000 ML IV SCH ×2 (06:15→18:48)
[2018-09-20] MEDS: VANCOMYCIN 1,750 MG in NACL 0.9% 500 ML 500 ML IV SCH ×2 (06:45→18:49)
[2018-09-20 07:26] LABS: BUN/Creatinine Ratio 11; Blood Urea Nitrogen 11 mg/dL (9-20); Calcium 8.1 mg/dL (8.4-10.2); Hemolysis Index 4
[2018-09-20] MEDS: HumaLOG SUB-Q SCH ×4 (08:34→22:39)
--- NOTE | 2018-09-20 09:39 | Progress Note ---
Assessment and Plan Cultures: Blood culture 09/18/2018 no growth. Wound culture 09/19/2018: in progress Stool culture 09/18/2018: negative Assessment: 42 y/o male with history of uncontrolled diabetes, HTN admitted on 09/18/2018 due to 2-day history of subjective fever, malaise and right foot pain 1) Sepsis: Improved. Fevers continuing. Leukocytosis trending down. Etiology most likely right diabetic foot infection. Lactate 2.8. UA neg. HIV neg. Blood culture 09/18/2018 no growth. CXR negative. CTA chest negative. CT abdomen negative. 2) Right diabetic foot infection: ? abscess ? He reports he has been shaving a callus while showering for several months, but this last time he noted some tenderness and swelling of the right plantal 1st mt head area. Also noted some purulence drainage. Arterial scan revealed No evidence of significant arterial insufficiency in the lower extremities. CT scan shows air bubbles and soft tissue swelling surrounding the first proximal phalanx suggesting cellulitis. No radiographic evidence for osteomyelitis. 3) LANI: antibiotics renally dosed 4) Uncontrolled diabetes: Glucose 418. Recommendations: - follow-up blood cultures - follow-up wound culture - contact isolation until MRSA is r/o - continue vancomycin, cefepime and flagyl renally adjusted, D2 - hold off on MRI for now -CRP and CBC ordered for tomorrow [facility] M: [phone] O:[phone] Subjective Date of service: 09/20/18 Interval history: Patient seen and examined. Reports continue right foot tenderness on exam. No ge neralized weakness. +fevers. Objective - Exam Narrative Exam: General appearance: Alert in NAD, conversant Eyes: anicteric sclerae, moist conjunctivae; no lid-lag; PERRLA HENT: Atraumatic; oropharynx clear with moist mucous membranes and no mucosal ulcerations/no oral thrush; normal hard and soft palate. Normal external ears. Neck: Trachea midline; supple, no thyromegaly or lymphadenopathy Lungs: CTA, with normal respiratory effort and no intercostal retractions CV: RRR, no murmurs Abdomen: Soft, non-tender; no masses or hepatosplenomegaly Extremities: +right foot 1st mt head plantar wound with edema, wrapped no drainage Skin: Normal temperature, turgor and texture; no rash, ulcers or subcutaneous nodules Psych: Appropriate affect, alert and oriented to person, place and time. Neuro: alert and oriented x 3. Moving all extermities - Constitutional Vitals: Vital Signs Temp Pulse Resp BP Pulse Ox 99.1 F 98 H 17 147/86 97 09/19/18 21:56 09/19/18 16:50 09/19/18 23:45 09/19/18 21:56 09/19/18 16:50 Temperature -Last 24 Hours Temperature 99.1 F Temperature 101.3 F Temperature 102.4 F - Labs CBC & Chem 7: 09/19/18 12:06 09/20/18 06:10 Labs: Abnormal lab results 09/19/18 09/19/18 09/19/18 Range/Units 12:06 12:06 13:19 WBC 13.2 H (4.5-11.0) K/mm3 Sodium 134 L (137-145) mmol/L Glucose 232 H (75-100) mg/dL POC Glucose 246 H (70-105) Calcium 8.2 L (8.4-10.2) mg/dL 09/19/18 09/19/18 09/20/18 Range/Units 16:57 21:59 07:27 WBC (4.5-11.0) K/mm3 Sodium (137-145) mmol/L Glucose (75-100) mg/dL POC Glucose 267 H 220 H 174 H (70-105) Calcium (8.4-10.2) mg/dL
--- NOTE | 2018-09-20 10:35 | Progress Note ---
<RAFA YIN C - Last Filed: 09/20/18 16:38> Objective - Constitutional Vitals: Vital Signs - 12hr 09/20/18 09/20/18 05:01 12:14 Temperature 99.1 F 100.4 F H Pulse Rate 98 H 101 H Respiratory 20 18 Rate Blood Pressure 137/67 144/85 O2 Sat by Pulse 97 100 Oximetry - Labs CBC & Chem 7: 09/19/18 12:06 09/20/18 06:10 Labs: Abnormal lab results 09/19/18 09/19/18 09/20/18 Range/Units 16:57 21:59 06:10 Sodium 135 L (137-145) mmol/L Glucose 181 H (75-100) mg/dL POC Glucose 267 H 220 H (70-105) Calcium 8.1 L (8.4-10.2) mg/dL 09/20/18 09/20/18 09/20/18 Range/Units 07:27 11:14 16:39 Sodium (137-145) mmol/L Glucose (75-100) mg/dL POC Glucose 174 H 188 H 180 H (70-105) Calcium (8.4-10.2) mg/dL <MODESTO EUBANKS R - Last Filed: 09/21/18 11:35> Assessment and Plan / Sepsis, POA due to right diabetic foot infection patient presented with fever, lactic acidosis, leukocytosis, tachycardia and tachypnea cont IV antibiotic therapy, follow wound cx, ID consult, CT Right LE showed Air bubbles and soft tissue swelling- may need GS consult /Right diabetic foot infection cont IV antibiotic therapy, negative blood cultures, pending wound cx, ID consulted, pending CRP, may need MRI and GS consult / Hyperglycemia due to uncontrolled type 2 diabetes mellitus ADA diet, sliding scale insulin, accu check, lantus QHS. adjust insulin dose as needed /Metabolic Acidosis due to sepsis and hyperglycemia IVF resuscitation therapy, / Hyponatremia due to hyperglycemia IVF resuscitation therapy, / Tobacco abuse Smoking cessation counseling done on admission, nicotine patch if needed / DVT prophylaxis Prophylactic lovenox Brief History: 42 y/o male with history of uncontrolled diabetes, HTN admitted on 09/18/2018 due to 2-day history of subjective fever, malaise and right foot pain and noted some tenderness and swelling of the right plantar 1st mt head area with some purulence drainage. In the ED, temp 103, HR 132, BP 139/85, R 21, O2 sat 95%. WBC 15. Creat 1.5. Lactate 2.8. Glucose 418. UA neg. HIV neg. Blood culture 09/18/2018 no growth. CXR negative. CTA chest negative. CT abdomen negative. ID consulted for further Mx of the infected diabetic foot. CT right LE: Air bubbles and soft tissue swelling surrounding the first proximal phalanx suggesting cellulitis. No acute bony abnormality identified. No radiographic evidence for osteomyelitis. Physical Examination General appearance: Alert in NAD, HEENT: Atraumatic; oropharynx clear with moist mucous membranes and no mucosal ulcerations/no oral thrush; normal hard and soft palate. Normal external ears.PERRLA Neck: Trachea midline; supple, no thyromegaly or lymphadenopathy Lungs: CTA, with normal respiratory effort and no intercostal retractions CV: S1 and s2 positive, no murmurs Abdomen: Soft, non-tender; no masses or hepatosplenomegaly Extremities: +right foot 1st mt head plantar wound with edema, tenderness draining bloody purulence Skin: Normal temperature, turgor and texture; no rash, ulcers or subcutaneous nodules Psych: Appropriate affect, alert and oriented to person, place and time. Neuro: alert and oriented x 3. Moving all extremities Subjective Date of service: 09/20/18 Interval history: patient seen and examined c/o right foot pain and discharge from the planter surface Still spiking temp Objective - Constitutional Vitals: Vital Signs - 12hr 09/19/18 09/19/18 22:45 23:45 Respiratory 18 17 Rate - Labs CBC & Chem 7: 09/21/18 00:16 09/20/18 06:10 Labs: Abnormal lab results 09/19/18 09/19/18 09/19/18 Range/Units 12:06 12:06 13:19 WBC 13.2 H (4.5-11.0) K/mm3 Sodium 134 L (137-145) mmol/L Glucose 232 H (75-100) mg/dL POC Glucose 246 H (70-105) Calcium 8.2 L (8.4-10.2) mg/dL 09/19/18 09/19/18 09/20/18 Range/Units 16:57 21:59 07:27 WBC (4.5-11.0) K/mm3 Sodium (137-145) mmol/L Glucose (75-100) mg/dL POC Glucose 267 H 220 H 174 H (70-105) Calcium (8.4-10.2) mg/dL
[2018-09-20] MEDS: SODIUM CHLORIDE FLUSH SYRINGE 10 ML IV SCH ×2 (11:03→22:25)
[2018-09-20] MEDS: PERCOCET 5/325 PO PRN (13:29)
[2018-09-20] MEDS: COLACE PO SCH ×2 (14:19→22:19)
[2018-09-20] MEDS: MIRALAX 3350 PO SCH (14:19)
[2018-09-20] MEDS: LOVENOX SUB-Q SCH (22:20)
[2018-09-21 00:51] LABS: Hematocrit 37.8 % (35.5-45.6); Hemoglobin 12.5 gm/dl (11.8-15.2); Mean Corpuscular HGB Conc 33 % (32-34); Mean Corpuscular Volume 86 fl (84-94); Platelet Count 181 K/mm3 (140-440); Red Blood Count 4.41 M/mm3 (3.65-5.03); Red Cell Distribution Width 14.3 % (13.2-15.2)
[2018-09-21] MEDS: MAXIPIME/NS 2 GM/100 ML 2 GM/100 ML BAG IV SCH ×3 (02:15→17:59)
[2018-09-21 03:03] LABS: Band Neutrophils # (Manual) 0.1 K/mm3; Basophils % (Manual) 0 % (0.0-1.8); Large Platelets 1+; Total Cells Counted 100
[2018-09-21 03:04] LABS: Platelet Estimate Consistent w Auto; RBC Morphology Normal
[2018-09-21] MEDS: FLAGYL 500 MG/100 ML 500 MG/100 ML BAG IV SCH ×3 (05:14→22:31)
[2018-09-21] MEDS: NACL 0.45% 1000 ML 1,000 ML IV SCH ×2 (05:15→14:03)
[2018-09-21] MEDS: VANCOMYCIN 1,750 MG in NACL 0.9% 500 ML 500 ML IV SCH (06:16)
[2018-09-21] MEDS: HumaLOG SUB-Q SCH ×4 (08:52→22:57)
[2018-09-21] MEDS: MIRALAX 3350 PO SCH (09:48)
[2018-09-21] MEDS: SODIUM CHLORIDE FLUSH SYRINGE 10 ML IV SCH ×2 (09:48→22:35)
[2018-09-21] MEDS: COLACE PO SCH ×2 (09:48→22:36)
--- NOTE | 2018-09-21 10:01 | Progress Note ---
Assessment and Plan Cultures: Blood culture 09/18/2018 no growth. Wound culture 09/19/2018: Staph aureus, Beta hemolytic strep group B Stool culture 09/18/2018: negative Assessment: 42 y/o male with history of uncontrolled diabetes, HTN admitted on 09/18/2018 due to 2-day history of subjective fever, malaise and right foot pain 1) Sepsis: Noted fever spike 102.2. . Leukocytosis trending down. Etiology most likely right diabetic foot infection. Lactate 2.8. UA neg. HIV neg. Blood culture 09/18/2018 no growth. CXR negative. CTA chest negative. CT abdomen negative.CRP 24.30. 2) Right diabetic foot infection: ? abscess ? He reports he has been shaving a callus while showering for several months, but this last time he noted some tenderness and swelling of the right plantal 1st mt head area. Also noted some purulence drainage. Arterial scan revealed No evidence of significant arterial insufficiency in the lower extremities. CT scan shows air bubbles and soft tissue swelling surrounding the first proximal phalanx suggesting cellulitis. No radiographic evidence for osteomyelitis. In light of high CRP will order MRI w/contrast to evaluate for abscess. Wound culture grew Staph aureus and Beta hemolytic strep group B. 4) Uncontrolled diabetes: Glucose 418. Recommendations: - follow-up blood cultures - follow-up wound culture for ID and ROSALES's. - contact isolation until MRSA is r/o - continue vancomycin, cefepime and flagyl , D3 - MRI ordered with contrast to evaluate for abscess -consider surgical consultation for possible abscess and persistent fever [facility] M: [id number] O:[phone] Subjective Date of service: 09/21/18 Interval history: Patient seen and examined. Reports continue right foot tenderness on exam. No generalized weakness. +fevers. Objective - Exam Narrative Exam: General appearance: Alert in NAD, conversant Eyes: anicteric sclerae, moist conjunctivae; no lid-lag; PERRLA HENT: Atraumatic; oropharynx clear with moist mucous membranes and no mucosal ulcerations/no oral thrush; normal hard and soft palate. Normal external ears. Neck: Trachea midline; supple, no thyromegaly or lymphadenopathy Lungs: CTA, with normal respiratory effort and no intercostal retractions CV: RRR, no murmurs Abdomen: Soft, non-tender; no masses or hepatosplenomegaly Extremities: +right foot 1st mt head plantar wound with edema, wrapped no drainage Skin: Normal temperature, turgor and texture; no rash, ulcers or subcutaneous nodules Psych: Appropriate affect, alert and oriented to person, place and time. Neuro: alert and oriented x 3. Moving all extermities - Constitutional Vitals: Vital Signs Temp Pulse Resp BP Pulse Ox 99.1 F 92 H 18 138/84 97 09/21/18 05:22 09/21/18 05:22 09/21/18 05:22 09/21/18 05:22 09/21/18 05:22 Temperature -Last 24 Hours Temperature 99.1 F Temperature 99.5 F Temperature 102.2 F Temperature 100.4 F - Labs CBC & Chem 7: 09/21/18 00:16 09/20/18 06:10 Labs: Abnormal lab results 09/20/18 09/20/18 09/20/18 Range/Units 06:10 11:14 16:39 WBC (4.5-11.0) K/mm3 Seg Neuts % (Manual) (40.0-70.0) % Lymphocytes % (Manual) (13.4-35.0) % Seg Neutrophils # Man (1.8-7.7) K/mm3 Lymphocytes # (Manual) (1.2-5.4) K/mm3 Monocytes # (Manual) (0.0-0.8) K/mm3 Sodium 135 L (137-145) mmol/L Glucose 181 H (75-100) mg/dL POC Glucose 188 H 180 H (70-105) Calcium 8.1 L (8.4-10.2) mg/dL C-Reactive Protein (0.00-1.30) mg/dL 09/20/18 09/21/18 09/21/18 Range/Units 20:49 00:16 00:16 WBC 13.6 H (4.5-11.0) K/mm3 Seg Neuts % (Manual) 84.0 H (40.0-70.0) % Lymphocytes % (Manual) 7.0 L (13.4-35.0) % Seg Neutrophils # Man 11.4 H (1.8-7.7) K/mm3 Lymphocytes # (Manual) 1.0 L (1.2-5.4) K/mm3 Monocytes # (Manual) 1.0 H (0.0-0.8) K/mm3 Sodium (137-145) mmol/L Glucose (75-100) mg/dL POC Glucose 204 H (70-105) Calcium (8.4-10.2) mg/dL C-Reactive Protein 24.30 H (0.00-1.30) mg/dL 09/21/18 Range/Units 07:25 WBC (4.5-11.0) K/mm3 Seg Neuts % (Manual) (40.0-70.0) % Lymphocytes % (Manual) (13.4-35.0) % Seg Neutrophils # Man (1.8-7.7) K/mm3 Lymphocytes # (Manual) (1.2-5.4) K/mm3 Monocytes # (Manual) (0.0-0.8) K/mm3 Sodium (137-145) mmol/L Glucose (75-100) mg/dL POC Glucose 141 H (70-105) Calcium (8.4-10.2) mg/dL C-Reactive Protein (0.00-1.30) mg/dL
[2018-09-21] MEDS: PERCOCET 5/325 PO PRN (11:19)
--- NOTE | 2018-09-21 11:36 | Progress Note ---
Assessment and Plan / Sepsis, POA due to right diabetic foot infection patient presented with fever, lactic acidosis, leukocytosis, tachycardia and tachypnea cont IV antibiotic therapy, follow final wound cx, ID consult, CT Right LE showed Air bubbles and soft tissue swelling- ordered GS consult and MRI right foot /Right diabetic foot infection cont IV antibiotic therapy, negative blood cultures, pending wound cx, ID consulted, elevated CRP, MRI and GS consult / Hyperglycemia due to uncontrolled type 2 diabetes mellitus ADA diet, sliding scale insulin, accu check, lantus QHS. adjust insulin dose as needed /Metabolic Acidosis due to sepsis and hyperglycemia IVF resuscitation therapy, / Hyponatremia due to hyperglycemia IVF resuscitation therapy, / Tobacco abuse Smoking cessation counseling done on admission, nicotine patch if needed / DVT prophylaxis Prophylactic lovenox Brief History: 42 y/o male with history of uncontrolled diabetes, HTN admitted on 09/18/2018 due to 2-day history of subjective fever, malaise and right foot pain and noted some tenderness and swelling of the right plantar 1st mt head area with some purulence drainage. In the ED, temp 103, HR 132, BP 139/85, R 21, O2 sat 95%. WBC 15. Creat 1.5. Lactate 2.8. Glucose 418. UA neg. HIV neg. Blood culture 09/18/2018 no growth. CXR negative. CTA chest negative. CT abdomen negative. ID consulted for further Mx of the infected diabetic foot. CT right LE: Air bubbles and soft tissue swelling surrounding the first proximal phalanx suggesting cellulitis. No acute bony abnormality identified. No radiographic evidence for osteomyelitis. Physical Examination General appearance: Alert in NAD, HEENT: Atraumatic; oropharynx clear with moist mucous membranes and no mucosal ulcerations/no oral thrush; normal hard and soft palate. Normal external ears.PERRLA Neck: Trachea midline; supple, no thyromegaly or lymphadenopathy Lungs: CTA, with normal respiratory effort and no intercostal retractions CV: S1 and s2 positive, no murmurs Abdomen: Soft, non-tender; no masses or hepatosplenomegaly Extremities: +right foot 1st mt head plantar wound with edema, tenderness drain ing bloody purulence Skin: Normal temperature, turgor and texture; no rash, ulcers or subcutaneous nodules Psych: Appropriate affect, alert and oriented to person, place and time. Neuro: alert and oriented x 3. Moving all extremities Subjective Date of service: 09/21/18 Interval history: patient seen and examined c/o right foot pain and discharge from the [facility] Still spiking temp, ordered MRI and GS consult Objective - Constitutional Vitals: Vital Signs - 12hr 09/21/18 05:22 Temperature 99.1 F Pulse Rate 92 H Respiratory 18 Rate Blood Pressure 138/84 O2 Sat by Pulse 97 Oximetry - Labs CBC & Chem 7: 09/21/18 00:16 09/20/18 06:10 Labs: Abnormal lab results 09/20/18 09/20/18 09/21/18 Range/Units 16:39 20:49 00:16 WBC 13.6 H (4.5-11.0) K/mm3 Seg Neuts % (Manual) 84.0 H (40.0-70.0) % Lymphocytes % (Manual) 7.0 L (13.4-35.0) % Seg Neutrophils # Man 11.4 H (1.8-7.7) K/mm3 Lymphocytes # (Manual) 1.0 L (1.2-5.4) K/mm3 Monocytes # (Manual) 1.0 H (0.0-0.8) K/mm3 POC Glucose 180 H 204 H (70-105) C-Reactive Protein (0.00-1.30) mg/dL 09/21/18 09/21/18 Range/Units 00:16 07:25 WBC (4.5-11.0) K/mm3 Seg Neuts % (Manual) (40.0-70.0) % Lymphocytes % (Manual) (13.4-35.0) % Seg Neutrophils # Man (1.8-7.7) K/mm3 Lymphocytes # (Manual) (1.2-5.4) K/mm3 Monocytes # (Manual) (0.0-0.8) K/mm3 POC Glucose 141 H (70-105) C-Reactive Protein 24.30 H (0.00-1.30) mg/dL
--- NOTE | 2018-09-21 15:55 | Consultation ---
History of Present Illness Consult date: 09/21/18 Reason for consult: wound care Requesting physician: BAILEE PHILLIPS Chief complaint: Draining right foot wound - History of present illness History of present illness: 42yo M with DM presents with 1 week history of wounds on the right foot. When the pain increased and he began to feel ill, patient presented to the ED for evaluation. +F/C/N. Pt was admitted for IV Abx and gen surg was consulted for wound care. Pt reports that he has sensation in the feet. He works in a [employer] and wears steel toes boots. He is on his feet all day. Past History Past Medical History: diabetes, other (Obesity) Past Surgical History: No surgical history Social history: smoking Family history: hypertension Medications and Allergies Allergies Allergy/AdvReac Type Severity Reaction Status Date / Time No Known Allergies Allergy Verified 09/08/17 13:04 Home Medications Medication Instructions Recorded Confirmed Last Taken Type Insulin NPH, Human [NovoLIN N] 20 units SQ HS 09/18/18 09/18/18 Unknown History Insulin Regular, Human [HumuLIN R] 20 unit SQ AC 09/18/18 09/18/18 Unknown Hist ory Active Meds: Active Medications Acetaminophen (Tylenol) 650 mg PO Q4H PRN PRN Reason: Pain MILD(1-3)/Fever >100.5/URIAS Last Admin: 09/19/18 17:10 Dose: 650 mg Documented by: Dextrose (D50w (25gm) Syringe) 50 ml IV PRN PRN PRN Reason: Hypoglycemia Docusate Sodium (Colace) 100 mg PO BID [facility] Last Admin: 09/21/18 09:48 Dose: 100 mg Documented by: Enoxaparin Sodium (Lovenox) 40 mg SUB-Q QDAY@2200 [facility] Last Admin: 09/20/18 22:20 Dose: 40 mg Documented by: Metronidazole (Flagyl 500 Mg/100 Ml) 500 mg in 100 mls @ 100 mls/hr IV Q8HR [facility]; Protocol Last Admin: 09/21/18 14:03 Dose: 100 mls/hr Documented by: Sodium Chloride (Nacl 0.45% 1000 Ml) 1,000 mls @ 125 mls/hr IV DIRECT [place] Last Admin: 09/21/18 14:03 Dose: 125 mls/hr Documented by: Cefepime HCl (Maxipime/Ns 2 Gm/100 Ml) 2 gm in 100 mls @ 200 mls/hr IV Q8H [facility]; Protocol Last Admin: 09/21/18 09:47 Dose: 200 mls/hr Documented by: Vancomycin HCl 2,000 mg/ (Sodium Chloride) 540 mls @ 250 mls/hr IV Q12H [facility] Insulin Human Lispro (Humalog) 0 unit SUB-Q ACHS [facility]; Protocol Last Admin: 09/21/18 12:00 Dose: 2 unit Documented by: Insulin Human NPH (Humulin N) 20 unit SUB-Q BIDDIAB [facility] Last Admin: 09/21/18 08:54 Dose: 20 unit Documented by: Ondansetron HCl (Zofran) 4 mg IV Q8H PRN PRN Reason: Nausea And Vomiting Oxycodone/Acetaminophen (Percocet 5/325) 1 tab PO Q4H PRN PRN Reason: Pain, Moderate (4-6) Last Admin: 09/21/18 11:19 Dose: 1 tab Documented by: Polyethylene Glycol (Miralax 3350) 17 gm PO QDAY [facility] Last Admin: 09/21/18 09:48 Dose: 17 gm Documented by: Sodium Chloride (Sodium Chloride Flush Syringe 10 Ml) 10 ml IV BID [facility] Last Admin: 09/21/18 09:48 Dose: 10 ml Documented by: Sodium Chloride (Sodium Chloride Flush Syringe 10 Ml) 10 ml IV PRN PRN PRN Reason: LINE FLUSH Review of Systems - Constitutional fever, night sweats, weakness - Cardiovascular no chest pain - Respiratory no cough - Gastrointestinal no abdominal pain - Muskuloskeletal right: foot pain - Integumentary wounds, boils Exam Vital Signs Pulse Resp Pulse Ox 132 H 21 95 09/18/18 13:00 09/18/18 13:00 09/18/18 13:00 - General physical appearance Positive: no distress, no pain, obese - Respiratory Positive: normal expansion, normal respiratory effort - Extremities Extremities: no ischemia, pulses intact Extremity abnormal: ulceration (right foot. multiple areas. Appears superficial. no tracking deep ), tenderness - Neurologic Neurologic: alert and oriented to time, place and person - Psychiatric Psychiatric: appropriate mood/affect, intact judgment & insight Results - Labs 09/21/18 00:16 09/20/18 06:10 Abnormal lab results 09/20/18 09/20/18 09/21/18 Range/Units 16:39 20:49 00:16 WBC 13.6 H (4.5-11.0) K/mm3 Seg Neuts % (Manual) 84.0 H (40.0-70.0) % Lymphocytes % (Manual) 7.0 L (13.4-35.0) % Seg Neutrophils # Man 11.4 H (1.8-7.7) K/mm3 Lymphocytes # (Manual) 1.0 L (1.2-5.4) K/mm3 Monocytes # (Manual) 1.0 H (0.0-0.8) K/mm3 POC Glucose 180 H 204 H (70-105) C-Reactive Protein (0.00-1.30) mg/dL 09/21/18 09/21/18 09/21/18 Range/Units 00:16 07:25 11:31 WBC (4.5-11.0) K/mm3 Seg Neuts % (Manual) (40.0-70.0) % Lymphocytes % (Manual) (13.4-35.0) % Seg Neutrophils # Man (1.8-7.7) K/mm3 Lymphocytes # (Manual) (1.2-5.4) K/mm3 Monocytes # (Manual) (0.0-0.8) K/mm3 POC Glucose 141 H 195 H (70-105) C-Reactive Protein 24.30 H (0.00-1.30) mg/dL - Imaging Additional studies: reviewed MRI, Ct and duplex studies for the right leg Assessment and Plan - Patient Problems (1) Diabetic foot ulcer Current Visit: Yes Status: Acute Qualifiers: Diabetic foot ulcer location: other Diabetes mellitus type: type 2 Laterality: right Non-pressure ulcer stage: limited to breakdown of skin Qualified Code(s): E11.621 - Type 2 diabetes mellitus with foot ulcer; L97.511 - Non-pressure chronic ulcer of other part of right foot limited to breakdown of skin Plan to address problem: Pt stable. No deep space infection found. Some non-viable skin was removed at the bedside. Will see how the wounds clean up with dressing changes. If need be, we can take the patient to the OR for more aggressive debridement. Will follow along. Please call with questions. time=30min
--- NOTE | 2018-09-21 17:20 | Magnetic Resonance Report ---
PROCEDURE: MR LE JOINT RT WO/W CON TECHNIQUE: Multiplane multiecho imaging obtained of the right foot with and without intravenous cont rast. HISTORY: evaluate for abscess COMPARISONS: Correlation is made with a prior noncontrast CT. FINDINGS: STIR images show high signal along the distal phalanx of the first toe. There is no replacement of no rmal fatty marrow signal on the T1 images, consistent with reactive bone marrow edema. There are degenerative changes at the first metatarsophalangeal joint with subchondral cyst formation and underlying reactive bone marrow edema. No evidence of osteomyelitis. Focal soft tissue swelling and thickening adjacent to the first interphalangeal joint, which may repr esent cellulitis. There are no organized fluid collections to suggest abscess. Disruption of the soft tissue planes lateral to the distal phalanx of the first toe, which may repres ent ulceration. Soft tissue edema dorsally overlying the metatarsals, nonspecific and which may represent cellulitis. IMPRESSION: Abnormal signal along the distal phalanx of the first toe consistent with reactive bone marrow edema. Degenerative changes at the first metatarsophalangeal joint with subchondral cyst formation and under lying reactive bone marrow edema. No evidence of osteomyelitis. Focal soft tissue swelling and thickening adjacent to the first interphalangeal joint which may repre sent cellulitis. No circumscribed fluid collection to suggest organized abscess. Disruption of the soft tissue planes lateral to the distal phalanx of the first toe which may represe nt ulceration. Clinical correlation. Soft tissue edema dorsally overlying the metatarsals, nonspecific and which may represent cellulitis. . This document is electronically signed by Joel Benoit MD., Sep 21 2018 05:18:12 PM ET
[2018-09-21] MEDS: VANCOMYCIN 2,000 MG in NACL 0.9% 500 ML 500 ML IV SCH (17:59)
[2018-09-21] MEDS: LOVENOX SUB-Q SCH (22:34)
[2018-09-22] MEDS: MAXIPIME/NS 2 GM/100 ML 2 GM/100 ML BAG IV SCH ×2 (02:18→09:16)
[2018-09-22] MEDS: VANCOMYCIN 2,000 MG in NACL 0.9% 500 ML 500 ML IV SCH (05:17)
[2018-09-22] MEDS: FLAGYL 500 MG/100 ML 500 MG/100 ML BAG IV SCH (06:49)
[2018-09-22] MEDS: HumaLOG SUB-Q SCH ×2 (08:00→13:47)
[2018-09-22] MEDS: MIRALAX 3350 PO SCH (09:16)
[2018-09-22] MEDS: COLACE PO SCH (09:17)
[2018-09-22] MEDS: SODIUM CHLORIDE FLUSH SYRINGE 10 ML IV SCH (09:18)
--- NOTE | 2018-09-22 09:37 | Progress Note ---
Assessment and Plan Cultures: Blood culture 09/18/2018 no growth. Wound culture 09/19/2018: Staph aureus, Beta hemolytic strep group B, march dominguez sceptible Stool culture 09/18/2018: negative Assessment: 42 y/o male with history of uncontrolled diabetes, HTN admitted on 09/18/2018 due to 2-day history of subjective fever, malaise and right foot pain 1) Sepsis: Improved. Leukocytosis improving. Etiology most likely right diabetic foot infection. Lactate 2.8. UA neg. HIV neg. Blood culture 09/18/2018 no growth. CXR negative. CTA chest negative. CT abdomen negative.CRP 24.30. 2) Right diabetic foot infection: ? abscess ? He reports he has been shaving a callus while showering for several months, but this last time he noted some tenderness and swelling of the right plantal 1st mt head area. Also noted some purulence drainage. Arterial scan revealed No evidence of significant arterial insufficiency in the lower extremities. CT scan shows air bubbles and soft tissue swelling surrounding the first proximal phalanx suggesting cellulitis. No radiographic evidence for osteomyelitis. Wound culture grew Staph aureus and Beta hemolytic strep group B. S/p I & D at bedside 09/21/18. no deep space infection found. Possible further aggressive debridement in the OR - Dr. Stevenson following. MRI findings consistent with . Focal soft tissue swelling and thickening adjacent to the first interphalangeal joint which may represent cellulitis. No evidence of abscess or osteomylitis 4) Uncontrolled diabetes: Glucose 418. Recommendations: - discontinue vancomycin, cefepime and flagyl -Start Cefazolin 2 gms IV every 8 hours -discontinue contact isolation -Anticipate discharge of Keflex1 gm Po every 6 hours for total 10 days ending 09-30-18 follow up in ID clinic 2 weeks ID is signing off [facility] M: [id number] O:[phone] Subjective Date of service: 09/22/18 Interval history: Patient seen and examined. Reports improved right foot pain and tenderness. No generalized weakness. no fevers. Objective - Exam Narrative Exam: General appearance: Alert in NAD, conversant Eyes: anicteric sclerae, moist conjunctivae; no lid-lag; PERRLA HENT: Atraumatic; oropharynx clear with moist mucous membranes and no mucosal ulcerations/no oral thrush; normal hard and soft palate. Normal external ears. Neck: Trachea midline; supple, no thyromegaly or lymphadenopathy Lungs: CTA, with normal respiratory effort and no intercostal retractions CV: RRR, no murmurs Abdomen: Soft, non-tender; no masses or hepatosplenomegaly Extremities: +right foot 1st mt head plantar wound with edema, wrapped no drainage Skin: Normal temperature, turgor and texture; no rash, ulcers or subcutaneous n odules Psych: Appropriate affect, alert and oriented to person, place and time. Neuro: alert and oriented x 3. Moving all extermities - Constitutional Vitals: Vital Signs Temp Pulse Resp BP Pulse Ox 97.7 F 88 20 147/93 95 09/22/18 05:55 09/22/18 05:55 09/22/18 05:55 09/22/18 05:55 09/22/18 05:55 Temperature -Last 24 Hours Temperature 97.7 F Temperature 98.9 F Temperature 97.7 F - Labs CBC & Chem 7: 09/21/18 00:16 09/20/18 06:10 Labs: Abnormal lab results 09/21/18 09/21/18 09/21/18 Range/Units 11:31 17:03 22:10 POC Glucose 195 H 238 H 139 H (70-105) 09/22/18 Range/Units 07:49 POC Glucose 117 H (70-105)
[2018-09-22] MEDS ORDERED: ceFAZolin 2 GM in NACL 0.9% 100 ML IV SCH (10:00)
--- NOTE | 2018-09-22 12:23 | Discharge Summary ---
Providers - Providers Date of Admission: 09/18/18 16:19 Date of discharge: 09/22/18 Attending physician: MODESTO EUBANKS 09/19/18 12:44 Consult to Wound/ET Nurse [CONS] Routine Reason For Exam: wound eval 09/19/18 12:49 Consult to Physician [CONS] Routine Comment: Consulting Provider: LOUIE BARNES Physician Instructions: Reason For Exam: sepsis with diabetic foot ulcer 09/21/18 11:35 Consult to Physician [CONS] Routine Comment: Consulting Provider: SKYE CESPEDES Physician Instructions: Reason For Exam: diabetic foot abscess Primary care physician: [facility], Hospitalization Reason for admission: right foot cellulitis Condition: Serious Pertinent studies: CXR chest CTA LE CT/MRI LE doppler Abdomen/pelvis CT Hospital course: Brief History: 42 y/o male with history of uncontrolled diabetes, HTN admitted on 09/18/2018 due to 2-day history of subjective fever, malaise and right foot pain and noted some tenderness and swelling of the right plantar 1st mt head area with some purulence drainage. In the ED, temp 103, HR 132, BP 139/85, R 21, O2 sat 95%. WBC 15. Creat 1.5. Lactate 2.8. Glucose 418. UA neg. HIV neg. Blood culture 09/18/2018 no growth. CXR negative. CTA chest negative. CT abdomen negative. ID consulted for further Mx of the infected diabetic foot. Initially placed on iv abx per ID. MRI foot showed no osteomylitis, GS recommended no surgical debridement. Patient was then discharged with po abx for total 2 weeks in stable condition. Radiological data: CT right LE: Air bubbles and soft tissue swelling surrounding the first proximal phalanx suggesting cellulitis. No acute bony abnormality identified. No radiographic evidence for osteomyelitis. MRI right foot: Abnormal signal along the distal phalanx of the first toe consistent with reactive bone marrow edema. Degenerative changes at the first metatarsophalangeal joint with subchondral cyst formation and underlying reactive bone marrow edema. No evidence of osteomyelitis. Focal soft tissue swelling and thickening adjacent to the first interphalangeal joint which may represent cellulitis. No circumscribed fluid collection to suggest organized abscess. Disruption of the soft tissue planes lateral to the distal phalanx of the first toe which may represent ulceration. Clinical correlation. Soft tissue edema dorsally overlying the metatarsals, nonspecific and which may represent cellulitis.. Discharge diagnosis and management: / Sepsis, POA due to right diabetic foot infection patient presented with fever, lactic acidosis, leukocytosis, tachycardia and tachypnea Treated with IV antibiotic therapy per ID recommendation, CT Right LE showed Air bubbles and soft tissue swelling, MRI right foot showed no osteomylitis GS recommended no need for surgical debridement Patient was discharged with Keflex1 gm Po every 6 hours for total 10 days ending 09-30-18 /Right diabetic foot infection Treated with IV antibiotic therapy per ID recommendation, negative blood cult ures, CT Right LE showed Air bubbles and soft tissue swelling, MRI right foot showed no osteomylitis GS recommended no need for surgical debridement Patient was discharged with Keflex1 gm Po every 6 hours for total 10 days ending 09-30-18 / Hyperglycemia due to uncontrolled type 2 diabetes mellitus managed with ADA diet, sliding scale insulin, accu check, lantus QHS. adjusted insulin dose as needed /Metabolic Acidosis due to sepsis and hyperglycemia treated with IVF resuscitation therapy, / Hyponatremia due to hyperglycemia resolved with IVF resuscitation therapy, / Tobacco abuse Smoking cessation counseling done on admission, nicotine patch recommended / DVT prophylaxis Prophylactic lovenox Microbiology 09/19/18 14:47 Foot - Right Wound Culture - Final Staphylococcus Aureus Beta Hemoltyic Strep Group G 09/18/18 13:14 Peripheral/Venous Blood Culture - Preliminary NO GROWTH AFTER 72 HOURS 09/18/18 13:04 Peripheral/Venous Blood Culture - Preliminary NO GROWTH AFTER 72 HOURS Physical Examination General appearance: Alert in NAD, HEENT: Atraumatic; oropharynx clear with moist mucous membranes and no mucosal ulcerations/no oral thrush; normal hard and soft palate. Normal external ears.PERRLA Neck: Trachea midline; supple, no thyromegaly or lymphadenopathy Lungs: CTA, with normal respiratory effort and no intercostal retractions CV: S1 and s2 positive, no murmurs Abdomen: Soft, non-tender; no masses or hepatosplenomegaly Extremities: +right foot 1st mt head plantar wound with slight edema, no drainage Skin: Normal temperature, turgor and texture; no rash, ulcers or subcutaneous nodules Psych: Appropriate affect, alert and oriented to person, place and time. Neuro: alert and oriented x 3. Moving all extremities Disposition: TO HOME OR SELFCARE Time spent for discharge: 34 minutes Core Measure Documentation - Palliative Care Palliative Care/ Comfort Measures: Not Applicable - Core Measures Any of the following diagnoses?: none Exam - Constitutional Vitals: Temp Pulse Resp BP Pulse Ox 97.7 F 88 20 147/93 95 09/22/18 05:55 09/22/18 05:55 09/22/18 05:55 09/22/18 05:55 09/22/18 05:55 Plan Activity: advance as tolerated Weight Bearing Status: Weight Bear as Tolerated Diet: diabetic Wound: per wound nurse instructions Special Instructions: record blood sugar diary Follow up with: CAMACHO WINSTON MD [Primary Care Provider] - 3-5 Days LOUIE BARNES MD [Staff Physician] - 7 Days Prescriptions: cephALEXin [Keflex] 1,000 mg PO Q6HR 10 Days #80 capsule Insulin NPH, Human [NovoLIN N] 20 unit SUB-Q BIDDIAB 30 Days #10 ml oxyCODONE /ACETAMINOPHEN [Percocet 5/325 mg] 1 tab PO Q4H PRN #10 tablet PRN Reason: Pain, Moderate (4-6)
[2018-09-22 17:14] VITALS: BP 130/87
== END 2018-09-22 17:30 | disposition home or self-care (01) | DRG 872 ==
LOC: ED 12:46 → 3A 16:19
PROVIDERS: ADMIT Internal Medicine; ATTEND Internal Medicine
DX: A41.9 Sepsis, unspecified organism (principal); E87.1 Hypo-osmolality and hyponatremia; L03.115 Cellulitis of right lower limb; F17.213 Nicotine dependence, cigarettes, with withdrawal; N17.9 Acute kidney failure, unspecified; E11.621 Type 2 diabetes mellitus with foot ulcer; L97.511 Non-pressure chronic ulcer of other part of right foot limited to breakdown of skin; E11.65 Type 2 diabetes mellitus with hyperglycemia; I10 Essential (primary) hypertension; E66.9 Obesity, unspecified; Z68.35 Body mass index [BMI] 35.0-35.9, adult; Z82.49 Family history of ischemic heart disease and other diseases of the circulatory system; Z71.6 Tobacco abuse counseling; Z79.4 Long term (current) use of insulin
CPT/HCPCS: 36415; 71045; 71275; 74177; 80048; 80053; 80202; 80307; 81001; 82140; 82270; 82805; 82962; 84443; 85007; 85025; 85027; 85379; 86140; 86850; 86900; 86901; 87040; 87045; 87076; 87116; 87186; 87806; 93005; 93010; 93925; G0378; A9577; J0690; J0692; J0696; J1650; J1815; J1885; J3370; J7030; J7040; Q9967